=== PATIENT | male | born 1955 | race Hispanic/Latino ===

== ENCOUNTER 2017-08-11 14:11 | Emergency (ER) | payer SELFPAY ==
[2017-08-11 14:40] LABS: Hemoglobin 10.8 g/dL (14.0-18.0); Mean Corpuscular HGB CONC 32.1 g/dL (32.0-36.0); Mean Corpuscular Hemoglobin 29.2 pg (27.0-31.0); Mean Corpuscular Volume 90.9 fl (80.0-94.0); Mean Platelet Volume 6.6 fL (7.4-10.4); Platelet Count 470 thou/uL (130-400); RBC Distribution Width 13.9 % (11.5-14.5); White Blood Cell (WBC) Count 39.5 thou/uL (4.8-10.8)
[2017-08-11 15:02] LABS: Band 3 % (5-11); Lymphocytes 6 % (21-51); MDiff Complete? YES; Neutrophil 91 % (42-75); PLT Morphology Comment Appears Increased
[2017-08-11 15:04] LABS: ALT (SGPT) 25 U/L (8-55); AST (SGOT) 15 U/L (5-34); Albumin 3.5 g/dL (3.5-5.0); Alkaline Phosphatase 246 U/L (40-150); Anion Gap 11 mmol/L (10-20); BUN (Urea Nitrogen) 35 mg/dL (8.4-25.7); Bilirubin, Total 0.4 mg/dL (0.2-1.2); Calc. Creatinine Clearance 0 mL/min (70-130); Carbon Dioxide 27 mmol/L (22-29); Chloride 103 mmol/L (98-107); Estimated GFR-MDRD 23; Globulin 4.5 g/dL (2.4-3.5); Glucose 136 mg/dL (70-105); Potassium 4.6 mmol/L (3.5-5.1); Sodium 136 mmol/L (136-145)
[2017-08-11 15:24] LABS: CKMB 0.8 ng/mL (0-6.6); Troponin I 0.033 ng/mL (< 0.028)
--- NOTE | 2017-08-11 15:35 | CT ---
CT HEAD WITHOUT CONTRAST: HISTORY: Altered mental status. Fall. COMPARISON: None. TECHNIQUE: A noncontrast head CT is performed from the skull base to the skull vertex. FINDINGS: No parenchymal hemorrhage. No extraaxial hematoma. No midline shift. Basilar cisterns are patent. Age-appropriate atrophy. Cortical chase-white matter differentiation is preserved. The ventricles and sulci are patent and symmetric. Chronic small-vessel ischemic changes of the whit e matter are identified. Calvarium is intact. Adequate aeration of the sinuses and mastoid air cells. IMPRESSION: 1. Age-appropriate atrophy. Chronic small-vessel ischemic change of the white matter. 2. No intracranial posttraumatic sequelae. POS: [facility]
--- NOTE | 2017-08-11 15:42 | RAD ---
CHEST 1 VIEW: HISTORY: Altered mental status. Cancer patient. FINDINGS: Slight elongation of the aorta. Normal cardiac silhouette. The pulmonary vessels and hilum are norm al. Costophrenic angles are clear. No consolidation or mass. No pneumothorax. No osseous abnormal ities. Right-sided MediPort catheter is presumed to be in the superior vena cava. IMPRESSION: No acute cardiopulmonary process. POS: [facility]
[2017-08-11 15:50] LABS: Calcium Greater than 17.0 mg/dL (7.8-10.44)
--- NOTE | 2017-08-11 16:30 | ULT ---
LEFT LOWER EXTREMITY WITH ULTRASOUND DOPPLER: History: Pain. Patient undergoes cancer treatment. Leg edema. Comparison: None. Technique: Grayscale, color flow, doppler imaging and spectral waveform analysis performed of the lef t lower extremity venous system. FINDINGS: Miniaml flow in the left common femoral vein, profunda vein, and proximal femoral vein. without assoc iated compressibility. There is partial compressibility in the mid and distal femoral vein as well as the popliteal vein. Minimal flow is present. Posterior tibial vein is patent. There is flow in the g reater saphenous vein. There is a complex echotexture mass in the left groin, incompletely evaluated. Mass measures 7.9 x 8. 8 x 5.4 cm. The possibility of enlarged lymph nodes vs hematoma is raised. IMPRESSION: Thrombus in the left lower extremity deep venous system. Left groin mass as above. POS: [facility]
[2017-08-11] MEDS ORDERED: Piperacillin/Tazobactam 4.5 GM VIAL ONE (16:32)
[2017-08-11 17:54] LABS: Bilirubin Negative (Negative); Blood, Urine Small (Negative); Clarity CLEAR (Clear); Glucose, Urine (Dipstick) Negative (Negative); Leukocyte Small (Negative); Nitrite Negative (Negative); Protein, Urine (Dipstick) Negative (Neg-Trace); Specific Gravity, Urine 1.011 (1.002-1.036); Urobilinogen 0.2 mg/dL (0.2-1.0); pH, Urine 6.5 (5.0-9.0)
[2017-08-11 17:56] LABS: Bacteria/HPF None Seen HPF (None Seen); Hyaline Casts/LPF 0-3 HYALINE CAST LPF (0-3 Hyaline); Squamous Epithelial 0-3 HPF (0-3)
== END 2017-08-11 18:23 | disposition short-term general hospital (02) ==
LOC: ERS 14:11 → EDBD 14:11 → ERS 18:23
DX: T81.4XXA Infection following a procedure, initial encounter (principal); I10 Essential (primary) hypertension; Z79.899 Other long term (current) drug therapy; Z85.59 Personal history of malignant neoplasm of other urinary tract organ
CPT/HCPCS: 36415; 51701; 70450; 71045; 80053; 81003; 81015; 82553; 83605; 84484; 85025; 87040; 93005; 96361; 96365; J2543; J3370